=== PATIENT | male | born 2000 | race American Indian/Alaskan Native ===

== ENCOUNTER 2024-11-28 23:38 | Emergency (ER) | payer SELFPAY ==
[2024-11-29 00:21] LABS: HEMATOCRIT 44.8 % (40.0-54.0); HEMOGLOBIN 14.6 g/dL (14.0-18.0); MEAN CORPUSCULAR HEMOGLOBIN 28.6 pg (27.0-34.0); MEAN CORPUSCULAR HGB CONC 32.6 g/dL (33.0-35.0); MEAN CORPUSCULAR VOLUME 87.8 fL (80-100); PLATELET COUNT,PLT 264 10^3/uL (150-450); WHITE BLOOD CELL COUNT,WBC 7.1 10^3/uL (5.0-10.0)
[2024-11-29 00:25] LABS: BASOPHILS PERCENT AUTO 0.3 % (0.0-1.0); EOSINOPHILS PERCENT AUTO 3.8 % (1.0-3.0); LYMPHOCYTES PERCENT AUTO 20.7 % (20.5-50.1); MONOCYTES PERCENT AUTO 6.6 % (2-8); NEUTROPHILS PERCENT AUTO 68.6 % (42.2-75.2)
[2024-11-29] MEDS: Ketorolac 30 MG/ML SDV IM ONE (00:29)
[2024-11-29 00:40] LABS: A/G RATIO 0.9; ALBUMIN 3.6 g/dL (3.4-5.0); ANION GAP 12.7 mEq/L (7-13); BILIRUBIN TOTAL 0.4 mg/dL (0.2-1.0); BUN/CREATININE RATIO 10.2 (No establ ref range); CREATININE 0.98 mg/dL (0.70-1.30); EST CRCL DRUG DOSING (CG) 121.66 mL/min; POTASSIUM,K 3.7 mmol/L (3.5-5.1); PROTEIN TOTAL,TP 7.6 g/dL (6.4-8.2)
[2024-11-29 00:43] LABS: LACTIC ACID 1.4 mmol/L (0.4-2.0)
[2024-11-29 00:46] LABS: EOSINOPHILS PERCENT MAN 2 % (1-3); LYMPHOCYTES PERCENT MAN 14 % (20-50); MONOCYTES PERCENT MAN 6 % (2-8); SEG NEUTROPHILS PERCENT MAN 78 % (42-75)
== END 2024-11-29 01:07 | disposition home or self-care (01) ==
LOC: DL.ED 23:38
DX: K59.00 Constipation, unspecified (principal)
CPT/HCPCS: 36415; 74018; 80053; 83605; 83690; 85025; 96372; 99283; 99284; J1885

== ENCOUNTER 2025-01-13 16:19 | Emergency (ER) | payer BC | END 2025-01-13 17:13 | disposition home or self-care (01) | LOC: DL.ED 16:19 | DX: R10.11 Right upper quadrant pain (principal); Z86.16 Personal history of COVID-19 | CPT/HCPCS: 99283 ==

== ENCOUNTER 2025-01-16 10:42 | Emergency (ER) | payer BC | END 2025-01-16 11:10 | disposition home or self-care (01) | LOC: DL.ED 10:42 | DX: J18.9 Pneumonia, unspecified organism (principal); F17.200 Nicotine dependence, unspecified, uncomplicated; Z86.16 Personal history of COVID-19; Z79.899 Other long term (current) drug therapy | CPT/HCPCS: 99283 ==